=== PATIENT | female | born 1960 | race Caucasian/White ===

== ENCOUNTER 2023-08-06 08:18 | Outpatient (CLI) | payer OTHER ==
--- NOTE | 2023-08-06 12:30 | XRAY Report ---
PROCEDURE: Chest 2V INDICATIONS: COUGH TECHNIQUE: 2 views of the chest were acquired. COMPARISON: None. FINDINGS: Surgical changes and devices: None. Lungs and pleura: No pleural effusions or pneumothorax. Small focal infiltrate, retrocardiac region of left lower lobe. Mediastinum: Mediastinal contours appear normal. Heart size is normal. Bones and chest wall: No suspicious bony lesions. Overlying soft tissues appear unremarkable. IMPRESSION: Small focal infiltrate, left lower lobe Progress films are recommended until clear. Reviewed by: Tremayne Marin MD on 08/06/2023 12:28 PM PDT Approved by: Tremayne Marin MD on 08/06/2023 12:28 PM PDT Station ID: [id number]
== END 2023-08-06 08:19 | disposition home or self-care (01) ==
LOC: DI.N 08:18
PROVIDERS: ATTEND Physician Assistant
DX: R91.8 Other nonspecific abnormal finding of lung field (principal)

== ENCOUNTER 2023-09-05 09:25 | Outpatient (CLI) | payer OTHER ==
--- NOTE | 2023-09-05 23:48 | XRAY Report ---
PROCEDURE: Chest 2V INDICATIONS: ABN CXR TECHNIQUE: 2 views of the chest were acquired. COMPARISON: 08/06/2023 FINDINGS: Surgical changes and devices: None. Lungs and pleura: No pleural effusions or pneumothorax. . Previously described small left lower lob e opacity is not as well visualized on today's study. Lungs are otherwise clear. Mediastinum: Mediastinal contours appear normal. Heart size is normal. Bones and chest wall: No suspicious bony lesions. Overlying soft tissues appear unremarkable. IMPRESSION: No acute cardiopulmonary process. No new focal consolidation. Reviewed by: Melchor Roman MD on 09/05/2023 11:47 PM PDT Approved by: Melchor Roman MD on 09/05/2023 11:47 PM PDT Station ID: [id number]
== END 2023-09-05 09:26 | disposition home or self-care (01) ==
LOC: DI 09:25
PROVIDERS: ATTEND Internal Medicine
DX: R93.89 Abnormal findings on diagnostic imaging of other specified body structures (principal)

== ENCOUNTER 2023-11-13 13:44 | Outpatient (CLI) | payer MEDICARE ==
--- NOTE | 2023-11-13 16:40 | MRI Report ---
PROCEDURE: Cervical Spine WO INDICATIONS: PAIN IN THORACIC SPINE TECHNIQUE: Noncontrast sagittal T1 spin echo and T2 fast spin echo, sagittal STIR, foraminal oblique sagittal T2 fast spin echo, and axial gradient echo or T2 fast spin echo through the cervical spine. COMPARISON: None. FINDINGS: Image quality: Excellent. Alignment and Curvature: There is normal bony alignment. Bone Marrow: Marrow demonstrates normal overall signal. Spinal Cord: Visualized spinal cord has normal size and signal. No cerebellar tonsillar herniation. Paraspinous Soft Tissues: No paravertebral masses. Prevertebral soft tissues are normal in thicknes s. C2-C3: Mild left facet hypertrophy. No canal stenosis or foraminal stenosis. C3-C4: Minimal central posterior disc protrusion with minimal indentation on the ventral cord. No c anal stenosis. AP diameter of the central canal is 12.2 mm. Left facet hypertrophy. No foraminal sten osis. C4-C5: Minimal central posterior disc protrusion abutting the cord without canal stenosis. AP diamet er of the central canal is 12.3 mm. Mild bilateral facet hypertrophy, left greater than right. No for aminal stenosis. C5-C6: Disc bulge with minimal central posterior disc protrusion abutting the cord. No canal stenosi s. AP diameter of the central canal is 11.4 mm. Left facet hypertrophy. No foraminal stenosis. C6-C7: Disc bulge. No canal stenosis or foraminal stenosis. C7-T1: Disc bulge. No canal stenosis or foraminal stenosis IMPRESSION: 1. Multilevel disc bulges and minimal disc protrusions. 2. No canal stenosis. 3. Mild multilevel facet arthropathy, left greater than right. 4. No significant foraminal stenosis. Reviewed by: Tremayne Marin MD on 11/13/2023 4:39 PM PDT Approved by: Tremayne Marin MD on 11/13/2023 4:39 PM PDT Station ID: [id number]
--- NOTE | 2023-11-13 16:43 | MRI Report ---
PROCEDURE: Thoracic Spine WO INDICATIONS: PAIN IN THORACIC SPINE TECHNIQUE: Noncontrast sagittal T1 spine echo and T2 fast spin echo, sagittal STIR, axial T1 and T2 fast spin ec ho through the thoracic spine. COMPARISON: Cervical spine MRI and lumbar spine MRI from the same date. FINDINGS: Image quality: Excellent. Alignment and Curvature: There is normal bony alignment. Bone Marrow: Marrow is of normal overall signal. No acute vertebral body compression fractures. Spinal Cord: Visualized spinal cord is normal in size and signal. Paraspinous Soft Tissues: No paravertebral masses. Miscellaneous: On axial images, central canal and foramina appear widely patent at all scanned level s. IMPRESSION: Normal thoracic cord. No canal stenosis or foraminal stenosis. Reviewed by: Tremayne Marin MD on 11/13/2023 4:42 PM PDT Approved by: Tremayne Marin MD on 11/13/2023 4:42 PM PDT Station ID: [id number]
--- NOTE | 2023-11-13 16:47 | MRI Report ---
PROCEDURE: Lumbar Spine WO INDICATIONS: PAIN IN THORACIC SPINE TECHNIQUE: Noncontrast sagittal T1 spin echo and T2 fast echo, sagittal STIR, axial T1 and T2 fast spin echo thr ough the lumbar spine. In cases with scoliosis, additional coronal T2 fast spin echo may be performe d. COMPARISON: None. FINDINGS: Image quality: Excellent. Alignment and Curvature: Trace anterolisthesis of L5 on S1. Bone Marrow: Marrow is of normal overall signal. No acute vertebral body compression fractures. Spinal Cord: Conus medullaris terminates at the L1-L2 level. Visualized cord demonstrates normal si gnal and size. Paraspinous Soft Tissues: No paravertebral masses. T12-L1: Normal in appearance. L1-L2: Normal in appearance. L2-L3: Early facet hypertrophy. No canal stenosis or foraminal stenosis. L3-L4: Minimal disc bulge. Mild facet hypertrophy. No canal stenosis or foraminal stenosis. L4-L5: Disc bulge. Prominent facet hypertrophy. Mild canal stenosis. No foraminal stenosis. L5-S1: Posterior annulus tear plus disc bulge. Prominent facet hypertrophy. Trace anterolisthesis. Borderline canal stenosis. Mild to moderate right foraminal stenosis and moderate left foraminal sten osis. IMPRESSION: 1. Multilevel underlying facet hypertrophy, prominent at L4-L5 and L5-S1. 2. Canal stenosis is mild at L4-L5 and borderline at L5-S1. 3. Moderate left foraminal stenosis at L5-S1. Reviewed by: Tremayne Marin MD on 11/13/2023 4:45 PM PDT Approved by: Tremayne Marin MD on 11/13/2023 4:45 PM PDT Station ID: [id number]
== END 2023-11-13 13:45 | disposition home or self-care (01) ==
LOC: DI 13:44
PROVIDERS: ATTEND Student in an Organized Health Care Education/Training Program
DX: M51.36 Other intervertebral disc degeneration, lumbar region (principal); M48.061 Spinal stenosis, lumbar region without neurogenic claudication; M47.816 Spondylosis without myelopathy or radiculopathy, lumbar region; M51.37 Other intervertebral disc degeneration, lumbosacral region; M48.07 Spinal stenosis, lumbosacral region; M47.817 Spondylosis without myelopathy or radiculopathy, lumbosacral region; M47.812 Spondylosis without myelopathy or radiculopathy, cervical region; M50.21 Other cervical disc displacement, high cervical region; M50.322 Other cervical disc degeneration at C5-C6 level